=== PATIENT | male | born 1950 | race Caucasian/White ===

== ENCOUNTER 2023-06-04 14:27 | Observation (INO) ==
--- NOTE | 2023-06-04 14:55 | Emergency Department Note ---
Impression & Plan Pulmonary embolism, Chest pain, Bronchitis, Acute hyperglycemia ED Provider Note NAME: NEETU GONZALEZ Jr AGE: 73 SEX: M : 1950 ARRIVES VIA: Walk-In INFORMANT: Patient, ED PROVIDER(S): Shlomo Mendez DO CHIEF COMPLAINT: Chest pain HPI: The patient is a 73-year-old male who presented to the emergency department for an evaluation of chest pain. The patient describes left-sided chest pain that began today. The patient denies having any abdominal pain or vomiting. He denies having any trouble breathing or pleurisy but he did note some tenderness in his leg like a charley horse. He is visiting our area from [place] and has been driving. Patient does not have a history of venous thromboembolic disease. He denies having any history of coronary artery disease. The patient states the pain is not worsened with exertion. He does not notice any lower extremity swelling. ROS: See above HPI for pertinent positives & negatives. A total of 10 systems reviewed and were otherwise negative. PAST MEDICAL HISTORY: See Below PAST SURGICAL HISTORY: See Below FAMILY HISTORY: See Below SOCIAL HISTORY: See Below HOME MEDICATIONS: See Below ALLERGIES: See Below VITALS: See Below PHYSICAL EXAMINATION: GENERAL: Patient is awake alert in no acute distress patient is resting comfortably and showing no signs of anxiety EYES: The conjunctivae are clear. The pupils are round and reactive. EARS, NOSE, MOUTH AND THROAT: The nose is without any evidence of any deformity. NECK: The neck is nontender and supple. RESPIRATORY: Normal respiratory effort is noted there is no evidence of wheezing rhonchi or rales CARDIOVASCULAR: Regular rate and rhythm noted there no murmurs rubs or gallops normal S1 normal S2. GASTROINTESTINAL: The abdomen is soft. Abdomen is nontender. MUSCULOSKELETAL/EXTREMITIES: There is no evidence of gross deformity full range of motion is noted in the hips and shoulders. SKIN: There is no obvious evidence of any rash. There are no petechiae, pallor or cyanosis noted. NEUROLOGIC: Patient is awake alert and oriented x3 MEDICAL DECISION MAKING: The patient is a 73-year-old male who presented to the emergency department for calf pain and chest pain. The patient recently traveled from [place]. The patient had no acute EKG changes on today's tracing and he had serial troponin markers were negative. The patient did have an elevated D-dimer as well as an elevated white blood cell count. I thought his condition could be consistent with a bronchitis so he was treated with an antibiotic while we did further workup. The patient was found to have signs of a pulmonary embolism on CT of the chest. Ultrasound of the lower extremity was obtained and not positive for DVT. I discussed patient's laboratory and radiographic studies with him. Given his findings I discussed his condition with the on-call [facility] hospitalist for possible inpatient management. They have agreed to evaluate the patient in the emergency department for further management and disposition. He was treated with Lovenox pending further workup. Triage Nursing notes reviewed. Vital Signs: reviewed and remarkable for no significant abnormalities Differential diagnosis: Cardiac ischemia, aortic dissection, pulmonary embolism, pneumothorax, pneumonia, pericarditis, myocarditis, esophageal rupture, GERD, cholecystitis, pancreatitis, musculoskeletal, as well as other pathologies. ER treatment provided: See below Diagnostics interpreted by me: ECG: EKG was obtained in the emergency department. My interpretation is normal sinus rhythm at 81 bpm. There is no ectopy. There is no acute ST segment abnormalities noted. No previous tracing was available. Cardiac Monitoring: An order was placed for continuous cardiac monitoring. The monitor shows a rate of 61 bpm with sinus rhythm. Laboratory studies: As stated above and show below. Imaging studies: See below. Radiographic imaging was reviewed by myself Consultation(s): I discussed this case with Dr. Pimentel who is on-call for the [facility] group. Past Med/Surg History Medical History Sciatica Parkinsons Social History Smoking Status: Never smoker Feels Safe at Home: Yes Allergies Allergies Allergy/AdvReac Type Severity Reaction Status Date / Time No Known Allergies Allergy Unverified 06/04/23 15:00 Home Meds Home Medications Medication Instructions Recorded Confirmed carbidopa 25 mg-levodopa 100 mg 1 tab PO TID 06/04/23 06/04/23 tablet cholecalciferol (vitamin D3) 25 0 mcg PO DAILY 06/04/23 06/04/23 mcg (1,000 unit) tablet (Vitamin D3) cyanocobalamin (vitamin B-12) 0 mcg PO DAILY 06/04/23 06/04/23 1,000 mcg tablet (Vitamin B-12) omeprazole 40 mg capsule,delayed 40 mg PO HS 06/04/23 06/04/23 release tamsulosin 0.4 mg capsule 0.4 mg PO QPM 06/04/23 06/04/23 turmeric 400 mg capsule 0 mg PO DAILY 06/04/23 06/04/23 valsartan 40 mg tablet 40 mg PO QPM 06/04/23 06/04/23 vitamin E 268 mg (400 unit) capsule 0 mg PO DAILY 06/04/23 06/04/23 Results & Data (ED) Vital Signs Vital Signs - 24 hr 06/04/23 14:31 06/04/23 14:41 06/04/23 14:41 Temperature 36.8 C Temperature Source Temporal Artery Scan Pulse Rate 89 Pulse Rate [Right Finger] 82 Pulse Rhythm Respiratory Rate 18 20 Respiratory Effort / Characteristics Non-Labored Spontaneous Non-Labored Spontaneous Respiratory Depth Normal Normal Respiratory Pattern Regular Regular Blood Pressure 137/73 Blood Pressure [Left Arm] 127/82 Blood Pressure Mean 94 Blood Pressure Mean [Left Arm] 97 Blood Pressure Position Sitting Blood Pressure Position [Left Arm] Semi-fowlers Pulse Oximetry 97 97 98 Oxygen Delivery Method Room Air Room Air Room Air Sepsis Recent Fever Within 48 Hours No Sepsis New/Unexplained Change in Mental Status N/A Sepsis Action Taken by Nursing No Action Required 06/04/23 14:41 06/04/23 15:15 06/04/23 18:00 Temperature Temperature Source Pulse Rate 84 84 Pulse Rate [Right Finger] 75 Pulse Rhythm Regular Respiratory Rate 14 18 Respiratory Effort / Characteristics Respiratory Depth Respiratory Pattern Blood Pressure Blood Pressure [Left Arm] 154/76 H Blood Pressure Mean Blood Pressure Mean [Left Arm] 102 Blood Pressure Position Blood Pressure Position [Left Arm] Pulse Oximetry 98 97 Oxygen Delivery Method Room Air Room Air Sepsis Recent Fever Within 48 Hours Sepsis New/Unexplained Change in Mental Status Sepsis Action Taken by Nursing 06/04/23 18:50 06/04/23 20:32 Temperature Temperature Source Pulse Rate 69 Pulse Rate [Right Finger] 61 Pulse Rhythm Respiratory Rate 16 Respiratory Effort / Characteristics Respiratory Depth Respiratory Pattern Blood Pressure Blood Pressure [Left Arm] 145/92 H Blood Pressure Mean Blood Pressure Mean [Left Arm] 109 Blood Pressure Position Blood Pressure Position [Left Arm] Pulse Oximetry 96 Oxygen Delivery Method Room Air Sepsis Recent Fever Within 48 Hours Sepsis New/Unexplained Change in Mental Status Sepsis Action Taken by Group Home Medications Current Medication List: was personally reviewed by me Laboratory Data Attestation: I reviewed the patient's lab results. 06/04/23 14:55 06/04/23 14:55 Lab Results 06/04/23 06/04/23 06/04/23 Range/Units 14:55 16:00 18:05 WBC 19.96 H (4.8-10.8) K/ul RBC 5.75 (4.70-6.10) M/uL Hgb 16.8 (14.0-18.0) g/dl Hct 49.3 (42.0-52.0) % MCV 85.7 (80.0-100.0) fL MCH 29.2 (25.0-34.0) pg MCHC 34.1 (32.0-36.0) g/dL RDW Std Deviation 39.0 (36.4-46.3) fL RDW Coeff of Barbara 12.5 (11.5-14.5) % Plt Count 202 (130-400) K/uL MPV 8.6 L (9.4-12.4) fL Immature Gran % (Auto) 4.9 % Neut % (Auto) 77.2 % Lymph % (Auto) 9.2 % Ransom % (Auto) 7.7 % Eos % (Auto) 0.3 % Baso % (Auto) 0.7 % Neut # (Auto) 15.42 H (1.40-6.50) K/uL Lymph # (Auto) 1.83 (1.20-3.40) K/uL Ransom # (Auto) 1.53 H (0.11-0.59) K/uL Eos # (Auto) 0.06 (0.00-0.50) K/uL Baso # (Auto) 0.14 (0.00-0.20) K/uL Immature Gran # (Auto) 0.98 H (0.01-0.20) K/uL PT Cancelled 10.3 INR Cancelled 0.9 APTT Cancelled 22 PTT Ratio Cancelled 0.8 D-Dimer Cancelled 340 Sodium 133 L (136-145) mmol/L Potassium 4.5 (3.5-5.1) mmol/L Chloride 103 (98-107) mmol/L Carbon Dioxide 22 (21-32) mmol/L Anion Gap 8 (3-11) BUN 34 H (6-23) mg/dl Creatinine 1.18 (0.6-1.4) mg/dl Est Cr Clr Drug Dosing 61.2 ml/min Est GFR ( Amer) 71.5 ml/min Est GFR (Non-Af Amer) 61.7 ml/min BUN/Creatinine Ratio 28.8 H (10-20) Glucose 326 H* (70-99(Fasting)) mg/dl Calcium 8.7 (8.6-10.3) mg/dl Total Bilirubin 0.5 (0.2-1.0) mg/dl AST 16 (13-39) U/L ALT 24 (7-52) U/L Alkaline Phosphatase 80 (34-104) U/L Troponin I High Sens 6.9 5.8 (0-20) pg/ml Total Protein 6.3 (6.0-8.3) gm/dl Albumin 3.9 (3.4-5.0) gm/dl Globulin 2.4 L (2.5-4.0) gm/dl Albumin/Globulin Ratio 1.6 (0.9-2) Lipase 26 (11-82) U/L Administered Medications Discontinued Medications Aspirin (Aspirin Chew 324 Mg) 324 mg PO NOW STA Stop: 06/04/23 14:42 Last Admin: 06/04/23 15:02 Dose: 324 mg Documented By: OSCAR Doxycycline Hyclate (Doxycycline Hyclate 100 Mg Cap) 100 mg PO NOW STA Stop: 06/04/23 19:44 Last Admin: 06/04/23 20:16 Dose: 100 mg Documented By: MONA Ceftriaxone Sodium (Rocephin) 2,000 mg in 50 mls @ 100 mls/hr IV NOW STA Stop: 06/04/23 20:12 Last Infusion: 06/04/23 20:47 Dose: Infused Documented By: Admin: 06/04/23 20:16 Dose: 100 mls/hr Documented By: MONA Ioversol (Optiray 320 125ml) 119 ml IV ONCE ONE Stop: 06/04/23 17:53 Last Admin: 06/04/23 17:52 Dose: 119 ml Documented By: SREE Morphine Sulfate (Morphine Sulfate 4 Mg/Ml 1 Ml Carp\Vial) 4 mg IV NOW STA Stop: 06/04/23 14:42 Last Admin: 06/04/23 15:03 Dose: 4 mg Documented By: LMM Ondansetron HCl (Ondansetron Inj 2 Mg/Ml 2 Ml Vial) 4 mg IV NOW STA Stop: 06/04/23 14:42 Last Admin: 06/04/23 15:03 Dose: 4 mg Documented By: LMM Imaging Data Attestation: I personally reviewed and interpreted this imaging study as follows: My Impression: 1 view chest x-ray was obtained in the emergency department. My interpretation is no free air or definite infiltrate, final report below. Radiologist's Impression: Chest X-Ray 06/04/23 14:41 XR chest 1V portable CLINICAL HISTORY: Chest pain, nonspecific COMPARISON STUDY: No previous studies for comparison. FINDINGS: Lung volumes are normal. No consolidation is identified. A 2.2 cm linear left basilar density is present. There is no pneumothorax or pleural effusion. Cardiac size is normal. Mediastinal contours are normal. There is no evidence for pulmonary edema. IMPRESSION: 2.2 cm linear left basilar density. This favors atelectasis. A focus of pneumonia or pulmonary lesion are considered less likely. Follow-up PA and lateral chest radiographs in one month to ensure resolution are recommended. ACT 112: Negative or not required by law. Electronically signed by: Benjamin Neville M.D. 06/04/2023 4:12 PM Chest CTA 06/04/23 16:28 CT ANGIOGRAPHY OF THE CHEST, PULMONARY EMBOLUS PROTOCOL CLINICAL HISTORY: Left-sided chest pain. Evaluate for pulmonary embolus. COMPARISON STUDY: Chest radiograph performed earlier today. TECHNIQUE: Following IV administration of 119 mL of Optiray, helical axial images of the chest were obtained utilizing the pulmonary embolus protocol. Maximal intensity projections and sagittal and coronal reformats were viewed on an independent 3D workstation. IV contrast was administered without complication. Automated exposure control was utilized for the study. A dose lowering technique was utilized adhering to the principles of ALARA. CT DOSE: 817.47 mGy.cm FINDINGS: There is a probable small segmental pulmonary embolus within the right upper lobe on axial image 171 of 249. Less likely, this could be artifactual, related to streak artifact from contrast within the SVC. No additional pulmonary emboli are identified. There is mild cardiomegaly. There is no pericardial effusion. Minimal scattered groundglass opacities and tree-in-bud nodules within the lungs are present. There is no pneumothorax or pleural effusion. No acute fractures within the bony thorax are identified. Visualized portions of the upper abdomen are unremarkable. IMPRESSION: 1. Probable small segmental pulmonary embolus within the right upper lobe. Less likely, this could be artifactual, as described above. Consideration might be given to further evaluation with bilateral lower extremity venous Doppler ultrasound. 2. Minimal groundglass opacities and tree-in-bud nodules within the lungs which favor a mild infectious process. No consolidation. No pulmonary infarct. ACT 112: Negative or not required by law. Electronically signed by: Benjamin Neville M.D. 06/04/2023 7:31 PM Venous Doppler Study 06/04/23 19:43 ULTRASOUND BILATERAL LOWER EXTREMITY VENOUS CLINICAL HISTORY: Lower extremity edema. COMPARISON STUDY: No priors. TECHNIQUE: Real-time, grayscale, and color Doppler sonography of the deep veins of the right and left lower extremity was performed from the inguinal crease to the calf. Compression and augmentation were utilized. FINDINGS: There is no sonographic evidence of deep venous thrombosis identified in the right or left lower extremity. The common femoral, superficial femoral, and popliteal veins are patent and normally compressible bilaterally. The greater saphenous vein and the profunda femoris vein at the junction with the common femoral vein are clear in both legs. The visualized calf veins are patent bilaterally. IMPRESSION: There is no sonographic evidence of deep venous thrombosis identified in the right or left lower extremity. ACT 112: Negative or not required by law. Electronically signed by: Lio Herrera M.D. 06/04/2023 9:50 PM Discharge Plan Visit Data Chief Complaint: Chest Pain Stated Complaint: CHEST PAINS ED Provider: Shlomo Mendez Discharge Problem: Pulmonary embolism, Chest pain, Bronchitis, Acute hyperglycemia Patient Disposition: Being Evaluated by Hospitalist Forms Stand Alone Forms: [facility] Pres[facility] Prescriptions: No Action cyanocobalamin (vitamin B-12) [Vitamin B-12] 1,000 mcg Tablet 0 mcg PO DAILY omeprazole 40 mg capsule,delayed release(DR/EC) 40 mg PO HS tamsulosin 0.4 mg capsule 0.4 mg PO QPM carbidopa-levodopa 25-100 mg tablet 1 tab PO TID vitamin E [Vitamin E-400] 268 mg (400 unit) Capsule 0 mg PO DAILY valsartan 40 mg tablet 40 mg PO QPM cholecalciferol (vitamin D3) [Vitamin D3] 25 mcg (1,000 unit) Tablet 0 mcg PO DAILY turmeric 400 mg Capsule 0 mg PO DAILY Referrals Referrals: PCP,NO [Primary Care Provider] - Discharge Problem: Pulmonary embolism Qualifiers: Pulmonary embolism type: unspecified Chronicity: acute Acute cor pulmonale presence: unspecified Qualified Code(s): I26.99 - Other pulmonary embolism without acute cor pulmonale Chest pain Qualifiers: Chest pain type: unspecified Qualified Code(s): R07.9 - Chest pain, unspecified
[2023-06-04] MEDS: ASPIRIN CHEW 324 MG PO STA (15:02)
[2023-06-04] MEDS: MoRPHine SULFATE 4 MG/ML 1 ML CARP\\VIAL IV STA (15:03)
[2023-06-04] MEDS: ONDANSETRON INJ 2 MG/ML 2 ML VIAL IV STA (15:03)
[2023-06-04 15:15] LABS: Basophils # (auto) 0.14 K/uL (0.00-0.20); Basophils % (auto) 0.7 %; Eosinophils # (auto) 0.06 K/uL (0.00-0.50); Eosinophils % (auto) 0.3 %; Hematocrit (blood only) 49.3 % (42.0-52.0); Hemoglobin 16.8 g/dl (14.0-18.0); Immature Granulocytes # (auto) 0.98 K/uL (0.01-0.20); Immature Granulocytes % (auto) 4.9 %; Lymphocytes # (auto) 1.83 K/uL (1.20-3.40); Lymphocytes % (auto) 9.2 %; Mean Corpuscular Hemoglobin 29.2 pg (25.0-34.0); Mean Corpuscular Hgb Conc 34.1 g/dL (32.0-36.0); Mean Corpuscular Volume 85.7 fL (80.0-100.0); Mean Platelet Volume 8.6 fL (9.4-12.4); Monocytes # (auto) 1.53 K/uL (0.11-0.59); Monocytes % (auto) 7.7 %; Neutrophils # (auto) 15.42 K/uL (1.40-6.50); Neutrophils % (auto) 77.2 %; Platelet Count 202 K/uL (130-400); RDW Coefficient of Variation 12.5 % (11.5-14.5); Red Blood Count 5.75 M/uL (4.70-6.10); White Blood Count 19.96 K/ul (4.8-10.8)
[2023-06-04 15:49] LABS: Albumin Globulin Ratio 1.6 (0.9-2); Albumin Level 3.9 gm/dl (3.4-5.0); BUN Creatinine Ratio 28.8 (10-20); Bilirubin,Total 0.5 mg/dl (0.2-1.0); Calcium 8.7 mg/dl (8.6-10.3); Creatinine Clr Calc Pharmacy 61.2 ml/min; Est GFR (African American) 71.5 ml/min; Est GFR (Non-African American) 61.7 ml/min; Globulin 2.4 gm/dl (2.5-4.0); Potassium 4.5 mmol/L (3.5-5.1); Total Protein 6.3 gm/dl (6.0-8.3); Troponin I High Sensitivity 6.9 pg/ml (0-20)
--- NOTE | 2023-06-04 16:14 | XRay Report ---
XR chest 1V portable CLINICAL HISTORY: Chest pain, nonspecific COMPARISON STUDY: No previous studies for comparison. FINDINGS: Lung volumes are normal. No consolidation is identified. A 2.2 cm linear left basilar densi ty is present. There is no pneumothorax or pleural effusion. Cardiac size is normal. Mediastinal cont ours are normal. There is no evidence for pulmonary edema. IMPRESSION: 2.2 cm linear left basilar density. This favors atelectasis. A focus of pneumonia or pulm onary lesion are considered less likely. Follow-up PA and lateral chest radiographs in one month to e nsure resolution are recommended. ACT 112: Negative or not required by law. Electronically signed by: Benjamin Neville M.D. 06/04/2023 4:12 PM
[2023-06-04 16:52] LABS: D Dimer 340 ug/L FEU (0-500); INR 0.9 (0.9-1.1); Partial Thromboplastin Ratio 0.8; Partial Thromboplastin Time 22 Seconds (21-31); Prothrombin Time 10.3 Seconds (9.0-12.0)
[2023-06-04] MEDS: OPTIRAY 320 125ml IV ONE (17:52)
--- NOTE | 2023-06-04 19:34 | CT Scan Report ---
CT ANGIOGRAPHY OF THE CHEST, PULMONARY EMBOLUS PROTOCOL CLINICAL HISTORY: Left-sided chest pain. Evaluate for pulmonary embolus. COMPARISON STUDY: Chest radiograph performed earlier today. TECHNIQUE: Following IV administration of 119 mL of Optiray, helical axial images of the chest were o btained utilizing the pulmonary embolus protocol. Maximal intensity projections and sagittal and cor onal reformats were viewed on an independent 3D workstation. IV contrast was administered without co mplication. Automated exposure control was utilized for the study. A dose lowering technique was ut ilized adhering to the principles of ALARA. CT DOSE: 817.47 mGy.cm FINDINGS: There is a probable small segmental pulmonary embolus within the right upper lobe on axial image 171 of 249. Less likely, this could be artifactual, related to streak artifact from contrast w ithin the SVC. No additional pulmonary emboli are identified. There is mild cardiomegaly. There is no pericardial effusion. Minimal scattered groundglass opacities and tree-in-bud nodules within the derek gs are present. There is no pneumothorax or pleural effusion. No acute fractures within the bony thor ax are identified. Visualized portions of the upper abdomen are unremarkable. IMPRESSION: 1. Probable small segmental pulmonary embolus within the right upper lobe. Less likely, this could be artifactual, as described above. Consideration might be given to further evaluation with bilateral l ower extremity venous Doppler ultrasound. 2. Minimal groundglass opacities and tree-in-bud nodules within the lungs which favor a mild infectio us process. No consolidation. No pulmonary infarct. ACT 112: Negative or not required by law. Electronically signed by: Benjamin Neville M.D. 06/04/2023 7:31 PM
[2023-06-04] MEDS: DOXYCYCLINE HYCLATE 100 MG CAP PO STA (20:16)
[2023-06-04] MEDS: cefTRIAXone SODIUM 2,000 MG/50 ML BAG IV STA (20:16)
--- NOTE | 2023-06-04 21:52 | Ultrasound Report ---
ULTRASOUND BILATERAL LOWER EXTREMITY VENOUS CLINICAL HISTORY: Lower extremity edema. COMPARISON STUDY: No priors. TECHNIQUE: Real-time, grayscale, and color Doppler sonography of the deep veins of the right and left lower extremity was performed from the inguinal crease to the calf. Compression and augmentation wer e utilized. FINDINGS: There is no sonographic evidence of deep venous thrombosis identified in the right or left lower extremity. The common femoral, superficial femoral, and popliteal veins are patent and normally compressible bilaterally. The greater saphenous vein and the profunda femoris vein at the junction w ith the common femoral vein are clear in both legs. The visualized calf veins are patent bilaterally. IMPRESSION: There is no sonographic evidence of deep venous thrombosis identified in the right or lef t lower extremity. ACT 112: Negative or not required by law. Electronically signed by: Loi Herrera M.D. 06/04/2023 9:50 PM
[2023-06-04] MEDS: ENOXAPARIN 80 MG/0.8 ML SYR SQ ONE (22:27)
--- NOTE | 2023-06-04 23:15 | History & Physical Report ---
Date of Service June 04, 2023 Assessment & Plan (1) GERD (gastroesophageal reflux disease): (2) B12 deficiency: (3) Hypertension: (4) BPH w urinary obs/LUTS: (5) Parkinsons: (6) Acute hyperglycemia: (7) Pulmonary embolism: (8) Bronchitis: (9) Chest pain: Plan Chest pain- Brief left-sided chest discomfort unlikely to be cardiac His symptoms have been associated with significantly worsening heartburn over the past 2 to 3 weeks, and therefore more likely GI related GERD- Patient has only sporadically taken omeprazole Place him on omeprazole 40 mg every morning and famotidine 40 mg at bedtime He needs to be more bland about his diet, as he reports he tends a lot of junk food at bedtime If symptoms are persistent despite appropriate treatment, then he needs to get an endoscopy Pulmonary embolism- CTA PE protocol read as probable small segmental pulmonary embolus within the right upper lobe that could possibly be artifactual. Bilateral lower extremity venous Dopplers are negative for DVT Will give a dose of Lovenox 1 mg/kg subcu x 1 this evening, and ask morning r adiology to over read the studies and if present, can place him on continuous treatment His right-sided PE, would not explain any left-sided sharp transient chest discomfort CT scan also suggested possible mild infectious process, however, patient has no symptoms and would not treat Hyperglycemia- Glucose 326 on admission, with follow-up 162 Checking hemoglobin A1c in the morning Would not restrict diet to diabetic other than to tell him to resume his usual healthier diet This can be followed up further when he returns back home Parkinson's- He reports just having started carbidopa-levodopa about 2 days ago Certainly Parkinson's can be associated with increased issues with reflux and dysphagia He will follow-up with his primary physicians when he returns home BPH with LUTS- Will continue tamsulosin, no symptoms at this time History of Present Illness Chief Complaint: The patient presents to the emergency department with complaint of a severe left-sided sharp chest pain that occurred while eating lunch today, with a worsening of his usual heartburn Primary Care Provider: NO PCP The patient is a 73-year-old male with a past medical history including newly diagnosed parkinsonism, B12 deficiency, GERD, BPH with LUTS and hypertension. He and his are visiting here from [place]. He notes that he has had significantly worse heartburn over the past 2 to 3 weeks. He takes omeprazole on an as-needed basis, but has not taken any recently. His symptoms of left- sided chest discomfort and worsening reflux occurred while eating lunch today. Because of the intensity and persistence of symptoms, he decided come to the ED for assessment. Is also been started recently on Parkinson's medications, which she has been taken for a day and a half so far. He reports that his primary physician has a referral for him to see a physician to evaluate hoarseness. Allergies Allergy/AdvReac Type Severity Reaction Status Date / Time No Known Allergies Allergy Unverified 06/04/23 15:00 Home Medications Medication Instructions Recorded Confirmed Type carbidopa 25 mg-levodopa 100 mg 1 tab PO TID 06/04/23 06/04/23 History tablet cholecalciferol (vitamin D3) 25 0 mcg PO DAILY 06/04/23 06/04/23 History mcg (1,000 unit) tablet (Vitamin D3) cyanocobalamin (vitamin B-12) 0 mcg PO DAILY 06/04/23 06/04/23 History 1,000 mcg tablet (Vitamin B-12) omeprazole 40 mg capsule,delayed 40 mg PO HS 06/04/23 06/04/23 History release tamsulosin 0.4 mg capsule 0.4 mg PO QPM 06/04/23 06/04/23 History turmeric 400 mg capsule 0 mg PO DAILY 06/04/23 06/04/23 History valsartan 40 mg tablet 40 mg PO QPM 06/04/23 06/04/23 History vitamin E 268 mg (400 unit) capsule 0 mg PO DAILY 06/04/23 06/04/23 History Past Med/Surg History Medical History (Updated 06/05/23 @ 06:23 by Hugh Baker MD) BPH w urinary obs/LUTS Hypertension B12 deficiency GERD (gastroesophageal reflux disease) Parkinsons Sciatica Social History Smoking Status: Former smoker Hx Alcohol Use: No Hx Substance Use: No Preferred Language: Welsh Communication Ability: Effective Predatory Animal Hunter Required: No Beliefs That Will Affect Care: None Current Living Situation: Spouse Feels Safe at Home: Yes Safety Concerns: Feels Safe At This Time Assistive Devices: Glasses Review of Systems Review of Systems: The patient denies palpitations, shortness of breath, dyspnea on exertion, cough, lower extremity swelling, fevers, chills, sweats, weight change, fatigue, nausea, vomiting, diarrhea , constipation, abdominal pain, pelvic pain, blood in urine or stool, dysuria, urinary frequency or urgency, lightheadedness, dizziness, headache, memory loss, loss of consciousness, rash, abnormal bruising or bleeding, imbalance, focal or generalized weakness, numbness or tingling in arms or legs, generalized arthralgias or myalgias, back or neck pain, or night sweats. The review of systems is otherwise negative other than for that already noted above, and at least 10 systems have been reviewed. Physical Exam Physical Exam: The patient is awake, alert and oriented 3, well developed and well nourished, normocephalic and atraumatic, lying in bed and in no acute distress. HEENT--PERRL, EOMI, mucous membranes and oropharynx normal Neck--supple. No JVD. No bruits. Thyroid normal, trachea midline, no adenopathy. Heart--normal S1 and S2. No murmurs, rubs or gallops. Lungs--clear bilaterally, no respiratory distress, no accessory muscle use. Abdomen--normal bowel sounds and soft. Nontender. Nondistended, no hernias or masses, no organomegaly. Extremities--No edema. Dermatologic--normal skin turgor, normal color, no abnormal lymph nodes, no rash. Neurologic--cranial nerves II through XII grossly intact. Rheumatologic--normal range of motion. Psychiatric--normal affect. Results & Data Results & Data Vital Signs (Past 12 Hours) Vital Signs Temp Pulse Pulse Resp BP BP Pulse Ox 06/04/23 22:45 66 06/04/23 20:32 61 16 145/92 H 96 06/04/23 18:50 69 06/04/23 18:00 75 18 154/76 H 97 06/04/23 15:15 84 06/04/23 14:41 84 14 98 06/04/23 14:41 82 20 127/82 98 06/04/23 14:41 97 06/04/23 14:31 36.8 C 89 18 137/73 97 O2 Del Method 06/04/23 22:45 06/04/23 20:32 Room Air 06/04/23 18:50 06/04/23 18:00 Room Air 06/04/23 15:15 06/04/23 14:41 Room Air 06/04/23 14:41 Room Air 06/04/23 14:41 Room Air 06/04/23 14:31 Room Air Laboratory Results Laboratory Results WBC 18.34 K/ul (4.8-10.8) H 06/05/23 04:55 RBC 5.16 M/uL (4.70-6.10) 06/05/23 04:55 Hgb 15.1 g/dl (14.0-18.0) 06/05/23 04:55 Hct 44.3 % (42.0-52.0) 06/05/23 04:55 MCV 85.9 fL (80.0-100.0) 06/05/23 04:55 MCH 29.3 pg (25.0-34.0) 06/05/23 04:55 MCHC 34.1 g/dL (32.0-36.0) 06/05/23 04:55 RDW Std Deviation 39.3 fL (36.4-46.3) 06/05/23 04:55 RDW Coeff of Barbara 12.6 % (11.5-14.5) 06/05/23 04:55 Plt Count 188 K/uL (130-400) 06/05/23 04:55 MPV 8.5 fL (9.4-12.4) L 06/05/23 04:55 Immature Gran % (Auto) 5.0 % 06/05/23 04:55 Neut % (Auto) 74.7 % 06/05/23 04:55 Lymph % (Auto) 10.5 % 06/05/23 04:55 Iron % (Auto) 8.7 % 06/05/23 04:55 Eos % (Auto) 0.4 % 06/05/23 04:55 Baso % (Auto) 0.7 % 06/05/23 04:55 Neut # (Auto) 13.70 K/uL (1.40-6.50) H 06/05/23 04:55 Lymph # (Auto) 1.93 K/uL (1.20-3.40) 06/05/23 04:55 Iron # (Auto) 1.59 K/uL (0.11-0.59) H 06/05/23 04:55 Eos # (Auto) 0.07 K/uL (0.00-0.50) 06/05/23 04:55 Baso # (Auto) 0.13 K/uL (0.00-0.20) 06/05/23 04:55 Immature Gran # (Auto) 0.92 K/uL (0.01-0.20) H 06/05/23 04:55 PT 10.3 Seconds (9.0-12.0) 06/04/23 16:00 INR 0.9 (0.9-1.1) 06/04/23 16:00 APTT 22 Seconds (21-31) 06/04/23 16:00 PTT Ratio 0.8 06/04/23 16:00 D-Dimer 340 ug/L FEU (0-500) 06/04/23 16:00 Sodium 134 mmol/L (136-145) L 06/05/23 04:55 Potassium 4.4 mmol/L (3.5-5.1) 06/05/23 04:55 Chloride 105 mmol/L (98-107) 06/05/23 04:55 Carbon Dioxide 26 mmol/L (21-32) 06/05/23 04:55 Anion Gap 3 (3-11) 06/05/23 04:55 BUN 32 mg/dl (6-23) H 06/05/23 04:55 Creatinine 0.99 mg/dl (0.6-1.4) 06/05/23 04:55 Est Cr Clr Drug Dosing 72.9 ml/min 06/05/23 04:55 Est GFR ( Amer) 88.4 ml/min 06/05/23 04:55 Est GFR (Non-Af Amer) 76.3 ml/min 06/05/23 04:55 BUN/Creatinine Ratio 32.3 (10-20) H 06/05/23 04:55 Glucose 190 mg/dl (70-99(Fasting)) H 06/05/23 04:55 POC Glucose 162 mg/dl (70-99) H 06/04/23 22:43 Calcium 8.3 mg/dl (8.6-10.3) L 06/05/23 04:55 Magnesium 1.8 mg/dl (1.7-2.4) 06/05/23 04:55 Total Bilirubin 0.5 mg/dl (0.2-1.0) 06/05/23 04:55 AST 12 U/L (13-39) L 06/05/23 04:55 ALT 25 U/L (7-52) 06/05/23 04:55 Alkaline Phosphatase 51 U/L (34-104) 06/05/23 04:55 Troponin I High Sens 6.4 pg/ml (0-20) 06/05/23 04:55 Total Protein 5.5 gm/dl (6.0-8.3) L 06/05/23 04:55 Albumin 3.4 gm/dl (3.4-5.0) 06/05/23 04:55 Globulin 2.1 gm/dl (2.5-4.0) L 06/05/23 04:55 Albumin/Globulin Ratio 1.6 (0.9-2) 06/05/23 04:55 Lipase 26 U/L (11-82) 06/04/23 14:55 Impressions Chest X-Ray 06/04/23 14:41 XR chest 1V portable CLINICAL HISTORY: Chest pain, nonspecific COMPARISON STUDY: No previous studies for comparison. FINDINGS: Lung volumes are normal. No consolidation is identified. A 2.2 cm linear left basilar density is present. There is no pneumothorax or pleural effusion. Cardiac size is normal. Mediastinal contours are normal. There is no evidence for pulmonary edema. IMPRESSION: 2.2 cm linear left basilar density. This favors atelectasis. A focus of pneumonia or pulmonary lesion are considered less likely. Follow-up PA and lateral chest radiographs in one month to ensure resolution are recommended. ACT 112: Negative or not required by law. Electronically signed by: Benjamin Neville M.D. 06/04/2023 4:12 PM Chest CTA 06/04/23 16:28 CT ANGIOGRAPHY OF THE CHEST, PULMONARY EMBOLUS PROTOCOL CLINICAL HISTORY: Left-sided chest pain. Evaluate for pulmonary embolus. COMPARISON STUDY: Chest radiograph performed earlier today. TECHNIQUE: Following IV administration of 119 mL of Optiray, helical axial images of the chest were obtained utilizing the pulmonary embolus protocol. Maximal intensity projections and sagittal and coronal reformats were viewed on an independent 3D workstation. IV contrast was administered without complication. Automated exposure control was utilized for the study. A dose lowering technique was utilized adhering to the principles of ALARA. CT DOSE: 817.47 mGy.cm FINDINGS: There is a probable small segmental pulmonary embolus within the right upper lobe on axial image 171 of 249. Less likely, this could be artifactual, related to streak artifact from contrast within the SVC. No additional pulmonary emboli are identified. There is mild cardiomegaly. There is no pericardial effusion. Minimal scattered groundglass opacities and tree-in-bud nodules within the lungs are present. There is no pneumothorax or pleural effusion. No acute fractures within the bony thorax are identified. Visualized portions of the upper abdomen are unremarkable. IMPRESSION: 1. Probable small segmental pulmonary embolus within the right upper lobe. Less likely, this could be artifactual, as described above. Consideration might be given to further evaluation with bilateral lower extremity venous Doppler ultrasound. 2. Minimal groundglass opacities and tree-in-bud nodules within the lungs which favor a mild infectious process. No consolidation. No pulmonary infarct. ACT 112: Negative or not required by law. Electronically signed by: Benjamin Neville M.D. 06/04/2023 7:31 PM Venous Doppler Study 06/04/23 19:43 ULTRASOUND BILATERAL LOWER EXTREMITY VENOUS CLINICAL HISTORY: Lower extremity edema. COMPARISON STUDY: No priors. TECHNIQUE: Real-time, grayscale, and color Doppler sonography of the deep veins of the right and left lower extremity was performed from the inguinal crease to the calf. Compression and augmentation were utilized. FINDINGS: There is no sonographic evidence of deep venous thrombosis identified in the right or left lower extremity. The common femoral, superficial femoral, and popliteal veins are patent and normally compressible bilaterally. The greater saphenous vein and the profunda femoris vein at the junction with the common femoral vein are clear in both legs. The visualized calf veins are patent bilaterally. IMPRESSION: There is no sonographic evidence of deep venous thrombosis identified in the right or left lower extremity. ACT 112: Negative or not required by law. Electronically signed by: Lio Herrera M.D. 06/04/2023 9:50 PM Code Status & VTE Plan Code Status Full code PG Care Time/CCT Total # of Minutes Spent Total Time Spent with Patient: Total time spent is greater than 50% in coordination of care (as documented) at patient's floor/unit and/or counseling patient: Coding Level of Care Code 27209 INT INP/OBS CARE MIN Diagnoses GERD (gastroesophageal reflux disease) K21.9 B12 deficiency E53.8 Hypertension I10 BPH w urinary obs/LUTS N40.1; N13.8 Parkinsons G20.A1 Acute hyperglycemia R73.9 Pulmonary embolism I26.99 Acute cor pulmonale presence: unspecified Chronicity: acute Pulmonary embolism type: unspecified Bronchitis J40 Chest pain R07.9 Chest pain type: unspecified (7) Pulmonary embolism Acute cor pulmonale presence: unspecified Chronicity: acute Pulmonary embolism type: unspecified Qualified Code(s): I26.99 - Other pulmonary embolism without acute cor pulmonale (9) Chest pain Chest pain type: unspecified Qualified Code(s): R07.9 - Chest pain, unspecified
[2023-06-04] MEDS: FAMOTIDINE 40 MG TABLET PO ONE (23:44)
[2023-06-05] MEDS ORDERED: ACETAMINOPHEN 325 MG TAB PO PRN (04:39)
[2023-06-05] MEDS ORDERED: ONDANSETRON INJ 2 MG/ML 2 ML VIAL IV PRN (04:39)
[2023-06-05 05:23] LABS: Basophils # (auto) 0.13 K/uL (0.00-0.20); Basophils % (auto) 0.7 %; Eosinophils # (auto) 0.07 K/uL (0.00-0.50); Eosinophils % (auto) 0.4 %; Hematocrit (blood only) 44.3 % (42.0-52.0); Hemoglobin 15.1 g/dl (14.0-18.0); Immature Granulocytes # (auto) 0.92 K/uL (0.01-0.20); Lymphocytes # (auto) 1.93 K/uL (1.20-3.40); Lymphocytes % (auto) 10.5 %; Mean Corpuscular Hemoglobin 29.3 pg (25.0-34.0); Mean Corpuscular Hgb Conc 34.1 g/dL (32.0-36.0); Mean Corpuscular Volume 85.9 fL (80.0-100.0); Mean Platelet Volume 8.5 fL (9.4-12.4); Monocytes # (auto) 1.59 K/uL (0.11-0.59); Monocytes % (auto) 8.7 %; Neutrophils % (auto) 74.7 %; Platelet Count 188 K/uL (130-400); RDW Coefficient of Variation 12.6 % (11.5-14.5); RDW Standard Deviation 39.3 fL (36.4-46.3); Red Blood Count 5.16 M/uL (4.70-6.10); White Blood Count 18.34 K/ul (4.8-10.8)
[2023-06-05 05:34] LABS: Albumin Globulin Ratio 1.6 (0.9-2); Albumin Level 3.4 gm/dl (3.4-5.0); BUN Creatinine Ratio 32.3 (10-20); Bilirubin,Total 0.5 mg/dl (0.2-1.0); Calcium 8.3 mg/dl (8.6-10.3); Creatinine Clr Calc Pharmacy 72.9 ml/min; Est GFR (African American) 88.4 ml/min; Est GFR (Non-African American) 76.3 ml/min; Globulin 2.1 gm/dl (2.5-4.0); Magnesium 1.8 mg/dl (1.7-2.4); Potassium 4.4 mmol/L (3.5-5.1); Total Protein 5.5 gm/dl (6.0-8.3)
[2023-06-05 05:39] LABS: Troponin I High Sensitivity 6.4 pg/ml (0-20)
--- NOTE | 2023-06-05 06:08 | Electrocardiogram Report ---
Test Reason : Blood Pressure : / mmHG Vent. Rate : 081 BPM Atrial Rate : 081 BPM P-R Int : 172 ms QRS Dur : 094 ms QT Int : 378 ms P-R-T Axes : 050 027 033 degrees QTc Int : 439 ms Normal sinus rhythm Normal ECG No previous ECGs available Confirmed by Robert Gregory ([id number]) on 06/05/2023 6:08:17 AM Referred By: NO PCP Confirmed By:Robert Gregory
[2023-06-05 07:59] LABS: Estimated Average Glucose 186 mg/dl; Hemoglobin A1C 8.1 % (4.5-5.6)
[2023-06-05] MEDS: CARBIDOPA/LEVODOPA 25/100MG TAB PO SCH (08:29)
[2023-06-05] MEDS: PANTOprazole 40 MG TAB PO SCH (08:29)
[2023-06-05] MEDS ORDERED: ENOXAPARIN 1.5 MG/KG SC SCH (08:30)
[2023-06-05] MEDS: AMOXICILLIN/CLAVULANATE 875 MG TAB PO SCH (09:11)
[2023-06-05] MEDS: DOXYCYCLINE HYCLATE 100 MG CAP PO SCH (09:11)
[2023-06-05] MEDS ORDERED: DEXTROSE 50% 50 ML SYRINGE IV PRN (09:41)
[2023-06-05] MEDS ORDERED: CARBOHYDRATES FOR HYPOGLYCEMIA PO PRN (09:41)
[2023-06-05] MEDS ORDERED: GLUCOSE 40% GEL 15 GM TUBE PO PRN (09:41)
[2023-06-05] MEDS ORDERED: GLUCAGON FOR INJ 1 MG VIAL SQ PRN (09:41)
[2023-06-05] MEDS ORDERED: GLUCOSE 10 TAB/TUBE PO PRN (09:41)
[2023-06-05] MEDS: ENOXAPARIN INJ 120 MG/0.8 ML SYR SQ SCH (09:42)
[2023-06-05] MEDS: INSULIN ASPART PER UNIT CHARGE SC SCH (12:07)
--- NOTE | 2023-06-05 12:17 | Discharge Summary ---
Date of Service June 05, 2023 Admission HPI Per Admitting Provider The patient is a 73-year-old male with a past medical history including newly diagnosed parkinsonism, B12 deficiency, GERD, BPH with LUTS and hypertension. He and his are visiting here from [place]. He notes that he has had significantly worse heartburn over the past 2 to 3 weeks. He takes omeprazole on an as-needed basis, but has not taken any recently. His symptoms of left- sided chest discomfort and worsening reflux occurred while eating lunch today. Because of the intensity and persistence of symptoms, he decided come to the ED for assessment. Is also been started recently on Parkinson's medications, which she has been taken for a day and a half so far. He reports that his primary physician has a referral for him to see a physician to evaluate hoarseness. Principal Diagnosis Right upper lobe pulmonary embolism, chest pain due to GERD, mild pneumonia, new diagnosis of diabetes Discharge Exam AOx4 pleasant gentleman sitting in bed Hemalatha no scleral icterus or conj injetion Lungs CTAB without rrw Heart reg no mrg no jvd Abd ND Skin w/d no rashes LE wwp no calf tenderness, no edema Neuro - AOx4 normal speech and mentation face symm [id number] Discharge Data Allergies Allergy/AdvReac Type Severity Reaction Status Date / Time No Known Allergies Allergy Unverified 06/04/23 15:00 Consultations 06/04/23 22:04 ED Decision to Admit Stat Ordered Studies 06/04/23 16:28 CT angio chest PE protocol Stat 06/04/23 19:43 US venous doppler LE BI Stat Chest X-Ray 06/04/23 14:41 XR chest 1V portable CLINICAL HISTORY: Chest pain, nonspecific COMPARISON STUDY: No previous studies for comparison. FINDINGS: Lung volumes are normal. No consolidation is identified. A 2.2 cm linear left basilar density is present. There is no pneumothorax or pleural effusion. Cardiac size is normal. Mediastinal contours are normal. There is no evidence for pulmonary edema. IMPRESSION: 2.2 cm linear left basilar density. This favors atelectasis. A focus of pneumonia or pulmonary lesion are considered less likely. Follow-up PA and lateral chest radiographs in one month to ensure resolution are recommended. ACT 112: Negative or not required by law. Electronically signed by: Benjamin Neville M.D. 06/04/2023 4:12 PM Chest CTA 06/04/23 16:28 CT ANGIOGRAPHY OF THE CHEST, PULMONARY EMBOLUS PROTOCOL CLINICAL HISTORY: Left-sided chest pain. Evaluate for pulmonary embolus. COMPARISON STUDY: Chest radiograph performed earlier today. TECHNIQUE: Following IV administration of 119 mL of Optiray, helical axial images of the chest were obtained utilizing the pulmonary embolus protocol. Maximal intensity projections and sagittal and coronal reformats were viewed on an independent 3D workstation. IV contrast was administered without complication. Automated exposure control was utilized for the study. A dose lowering technique was utilized adhering to the principles of ALARA. CT DOSE: 817.47 mGy.cm FINDINGS: There is a probable small segmental pulmonary embolus within the right upper lobe on axial image 171 of 249. Less likely, this could be artifactual, related to streak artifact from contrast within the SVC. No additional pulmonary emboli are identified. There is mild cardiomegaly. There is no pericardial effusion. Minimal scattered groundglass opacities and tree-in-bud nodules within the lungs are present. There is no pneumothorax or pleural effusion. No acute fractures within the bony thorax are identified. Visualized portions of the upper abdomen are unremarkable. IMPRESSION: 1. Probable small segmental pulmonary embolus within the right upper lobe. Less likely, this could be artifactual, as described above. Consideration might be given to further evaluation with bilateral lower extremity venous Doppler ultrasound. 2. Minimal groundglass opacities and tree-in-bud nodules within the lungs which favor a mild infectious process. No consolidation. No pulmonary infarct. ACT 112: Negative or not required by law. Electronically signed by: Benjamin Neville M.D. 06/04/2023 7:31 PM Venous Doppler Study 06/04/23 19:43 ULTRASOUND BILATERAL LOWER EXTREMITY VENOUS CLINICAL HISTORY: Lower extremity edema. COMPARISON STUDY: No priors. TECHNIQUE: Real-time, grayscale, and color Doppler sonography of the deep veins of the right and left lower extremity was performed from the inguinal crease to the calf. Compression and augmentation were utilized. FINDINGS: There is no sonographic evidence of deep venous thrombosis identified in the right or left lower extremity. The common femoral, superficial femoral, and popliteal veins are patent and normally compressible bilaterally. The greater saphenous vein and the profunda femoris vein at the junction with the common femoral vein are clear in both legs. The visualized calf veins are patent bilaterally. IMPRESSION: There is no sonographic evidence of deep venous thrombosis identified in the right or left lower extremity. ACT 112: Negative or not required by law. Electronically signed by: Lio Herrera M.D. 06/04/2023 9:50 PM 06/05/23 04:55 06/05/23 04:55 Diabetes Follow up Primary care - in [place] Hospital Course (1) Pulmonary embolism: Small RUL PE in segmental artery. No pain this area. No hypoxia and troponins negative, low risk. LE duplex negative. Per radiologist more likely PE but could be artifact. Risks:benefits favor treatment course with anticoagulation. Recently drove 11h from [place] straight, clear risk factor. Treatment duration 3-6 mo. 3 mo likely adequate for small PE -apixaban prescribed -discussed anticoagulation risks:benefits (2) Pneumonia: Mild ground-glass changes in lungs, WBC 18. Not clearly symptomatic -course of oral antibiotics - 7d augmentin and doxycycline (3) Chest pain: Nonexertional, left sided, burning. EKG negative for ACS, serial HS-troponin negative. Resolved with treatment for GERD. Opposite side as PE. Brief left-sided chest discomfort unlikely to be cardiac His symptoms have been associated with significantly worsening heartburn over the past 2 to 3 weeks, and therefore more likely GI related (4) Type 2 diabetes mellitus: New diagnosis - BG in 200s, A1c 8% has Hx prediabetes and recent 10 pound weight gain Met with deputy sheriff k9 handler about diet/lifestyle Prescribed metformin Follow up with PCP (5) GERD (gastroesophageal reflux disease): Instructed to take his omeprazole daily (6) B12 deficiency: (7) Hypertension: (8) BPH w urinary obs/LUTS: (9) Parkinsons: He reports just having started carbidopa-levodopa about 2 days ago Certainly Parkinson's can be associated with increased issues with reflux and dysphagia He will follow-up with his primary physicians when he returns home Plan Total Time Total Time Spent Total Time Spent (In Minutes): I spent 40 minutes - reviewing vitals, tests, studies, CT films, discussion with DM educator, examining and counseling patient and his , discharge instructions and prescriptions, writing orders, documentation Discharge Plan Discharge Items Patient Disposition: Home - Self-Care Reason For Visit: PE Discharge Diagnosis: Small RUL pulmonary embolism, possible mild pneumonia, GERD, new diagnosis of DM type 2 Activity: Resume your previous activity Non-emergency contact: Primary Care Provider Call non-emergency contact if: you have any medication questions, your symptoms worsen and you have a fever Follow-up/Referrals: PCP,NO [Primary Care Provider] - Diet: Carb Consistent or DM2 Addtl Attending Provider Instructions: Call your primary care doctor and make an appointment for as soon as you get back home, ideally within 1-2 weeks You have a small probable blood clot (PE, pulmonary embolism) in the upper part of right lung. No clots in legs right now. The risk factor for this was your long drive. A course of blood thinner (Eliquis AKA apixaban) is recommended to resolve the clot and prevent worsening/recurrence. The usual course is 3 to 6 months. Talk to your doctor about how long you should be on blood thinner. We discussed the risks and benefits of blood thinners, including the risks of gastrointestinal bleeding - seek medical attention if you have black/tarry or bloody stool There is also a very small but real risk of intracranial hemorrhage - related to head trauma or bleeding-type stroke, that can be life threatening. Call 911 if you have altered mental status or symptoms of stroke (weakness or numbness of face/arm/leg, trouble speaking or understanding, trouble with walking/balance Based on chest CT you may have mild pneumonia, your white blood count is also elevated. Recommend a week of oral antibiotics. For your acid reflux that seems to have caused your chest pain, take omeprazole every day. Your hemoglobin A1c was 8% - this indicates your average blood sugars are in the diabetic range. You met with metal fabricating inspector about dietary changes. Exercise and weight loss also helps. -I prescribed medication called metformin to start treating this. Follow up with your doctor Pending Studies at Discharge: No Stand-Alone Forms: [facility], Smoking Cessation Medications and DC Order Prescriptions: New amoxicillin-pot clavulanate 875-125 mg Tablet 1 tab PO BIDM Qty: 13 0RF doxycycline hyclate 100 mg Capsule 100 mg PO BID Qty: 13 0RF metformin 500 mg tablet extended release 24 hr 500 mg PO DAILY Qty: 30 0RF Eliquis 5 mg (74 tabs) tablets,dose pack 5 mg PO BID Qty: 74 0RF Continued cyanocobalamin (vitamin B-12) [Vitamin B-12] 1,000 mcg Tablet 0 mcg PO DAILY omeprazole 40 mg capsule,delayed release(DR/EC) 40 mg PO HS tamsulosin 0.4 mg capsule 0.4 mg PO QPM carbidopa-levodopa 25-100 mg tablet 1 tab PO TID vitamin E [Vitamin E-400] 268 mg (400 unit) Capsule 0 mg PO DAILY valsartan 40 mg tablet 40 mg PO QPM cholecalciferol (vitamin D3) [Vitamin D3] 25 mcg (1,000 unit) Tablet 0 mcg PO DAILY turmeric 400 mg Capsule 0 mg PO DAILY Discharge Orders: Discharge Order (Routine); Ordered 06/05/23 Ordered By: Thao Chang Admission Data Admit Date/Time: 06/05/23 01:44 Attending Provider: Thao Chang Admit Provider: Hugh Baker Primary Care Provider: PCP,NO Other Providers: Hugh Baker Coding Level of Care Code 62871 INP/OBS DISCH >30 MIN Diagnoses Pulmonary embolism I26.99 Acute cor pulmonale presence: unspecified Chronicity: acute Pulmonary embolism type: unspecified Pneumonia J18.9 Chest pain R07.9 Chest pain type: unspecified Type 2 diabetes mellitus E11.9 GERD (gastroesophageal reflux disease) K21.9 B12 deficiency E53.8 Hypertension I10 BPH w urinary obs/LUTS N40.1; N13.8 Parkinsons G20.A1
[2023-06-05] MEDS ORDERED: VALSARTAN 80 MG TAB PO SCH (21:00)
[2023-06-05] MEDS ORDERED: FAMOTIDINE 40 MG TABLET PO SCH (21:00)
[2023-06-05] MEDS ORDERED: TAMSULOSIN HCL 0.4 MG CAP PO SCH (21:00)
== END 2023-06-05 13:07 | disposition home or self-care (01) ==
LOC: ED 14:27 → 1E 14:27 → SUATTDRO 06-05 01:44 → 1E 06-05 04:03